=== PATIENT | female | born 1985 | race Caucasian/White ===

== ENCOUNTER 2020-08-19 02:20 | Observation (INO) | payer SELFPAY ==
[~2020-08-19] VITALS: Ht 165 cm; Wt 91.0 kg
[2020-08-19] MEDS ORDERED: PREN-556 PO (02:27)
[2020-08-19] MEDS ORDERED: FERR-212 PO (02:27)
[2020-08-19 02:53] VITALS: BP 131/68
== END 2020-08-19 04:25 | disposition home or self-care (01) ==
LOC: MLD 02:20 → EDBD 02:20
PROVIDERS: ADMIT Obstetrics & Gynecology; ATTEND Obstetrics & Gynecology
DX: O62.9 Abnormality of forces of labor, unspecified (principal); Z3A.38 38 weeks gestation of pregnancy
CPT/HCPCS: 59025; G0378

== ENCOUNTER 2020-08-19 18:45 | Inpatient (IN) | payer SELFPAY ==
[~2020-08-19] VITALS: Ht 165 cm; Wt 97.0 kg
[~2020-08-19 18:45] MED LIST: FERR-212 PO; PREN-556 PO
[2020-08-19] MEDS ORDERED: LACTATED RINGERS 1,000 ML IV SCH (19:15)
[2020-08-19] MEDS ORDERED: AMPICILLIN 2,000 MG in NACL 0.9% 100 ML IV SCH (19:25)
[2020-08-19] MEDS ORDERED: OXYTOCIN 20 UNITS in LACTATED RINGERS 1,000 ML IV SCH (19:25)
[2020-08-19 19:55] LABS: RED BLOOD CELL COUNT(AUTO) 5.55 MIL/uL (4.20-5.40)
[2020-08-19 19:56] LABS: APPEARANCE,URINE CLEAR (CLEAR); BILIRUBIN,URINE NEGATIVE (NEGATIVE); BLOOD, URINE NEGATIVE (NEGATIVE); COLOR,URINE YELLOW (YELLOW); LEUKOCYTE ESTERASE ,URINE 1+ (NEGATIVE); NITRITE, URINE NEGATIVE (NEGATIVE); UGLUCOSE NEGATIVE (NEGATIVE)
[2020-08-19 20:00] LABS: BASOPHILS % (AUTO) 0.2 % (0.0-2.0); EOSINOPHILS % (AUTO) 0.4 % (0.0-4.0); HEMATOCRIT 41.9 % (36-48); HEMOGLOBIN 13.6 g/dL (12.0-16.0); LYMPHOCYTES # (AUTO) 1.3 K/uL (2.5-16.5); LYMPHOCYTES % (AUTO) 11.4 % (20.5-51.1); MEAN CORPUSCULAR HEMOGLOBIN 25 pg (27-31); MEAN CORPUSCULAR HGB CONC 33 g/dL (33-37); MEAN CORPUSCULAR VOLUME 75.4 fL (80-94); MONOCYTES # (AUTO) 0.7 K/uL (0.8-1.0); MONOCYTES % (AUTO) 6.7 % (1.7-9.3); NEUTROPHILS % (AUTO) 81.3 % (42.2-75.2); PLATELET COUNT (AUTO) 187 K/uL (140-450); RED CELL DISTRIBUTION WIDTH 24.5 % (11.6-13.7)
[2020-08-19 20:03] LABS: RBC,URINE 0-5 /HPF (0-5)
[2020-08-19 20:10] LABS: ALBUMIN 3.1 g/dL (3.4-5.0); ANION GAP 13.4 (8-16); CARBON DIOXIDE 24.5 mmol/L (21-32); CREATININE 0.5 mg/dL (0.6-1.3); POTASSIUM 3.9 mmol/L (3.5-5.1); TOTAL BILIRUBIN 0.4 mg/dL (0.0-1.0)
[2020-08-19] MEDS ORDERED: AMPICILLIN 2,000 MG VIAL ONE (21:14)
[2020-08-19 21:36] VITALS: BP 134/92
[2020-08-19] MEDS ORDERED: ROPIVACAINE 0.2%/NS PREMIX 200 ML EPI ONE (21:41)
[2020-08-19] MEDS ORDERED: OXYTOCIN 20 UNITS/LR PREMIX 1,000 ML IV ONE (23:04)
[2020-08-19] MEDS ORDERED: METHYLERGONOVINE 0.2 MG TAB PO PRN (23:15)
[2020-08-19] MEDS ORDERED: BENZOCAINE/MENTHOL 20%-0.5% 60 GM CAN TP PRN (23:15)
[2020-08-19] MEDS ORDERED: OXYTOCIN 10 UNITS/ML VIAL IM PRN (23:15)
[2020-08-19] MEDS ORDERED: oxyCODONE/APAP 5/325 MG 1 TAB TAB PO PRN ×2 (23:15)
[2020-08-19] MEDS ORDERED: TEMAZEPAM 15 MG CAP PO PRN (23:15)
[2020-08-19] MEDS ORDERED: METHYLERGONOVINE 0.2 MG/ML AMP IM PRN (23:15)
[2020-08-19] MEDS ORDERED: IBUPROFEN 800 MG TAB PO PRN (23:15)
[2020-08-20] MEDS ORDERED: AMPICILLIN 1,000 MG in NACL 0.9% 50 ML IV SCH ×2
[2020-08-20 05:49] LABS: HEMATOCRIT 37.8 % (36-48); HEMOGLOBIN 12.1 g/dL (12.0-16.0)
[2020-08-20] MEDS ORDERED: DOCUSATE SOD/SENNA 50/8.6 MG 1 TAB PO SCH (21:00)
--- NOTE | 2020-08-21 08:43 | NUR ---
PATIENT HAS BEEN SCREENED AND CATEGORIZED LOW NUTRITION RISK. PATIENT WILL BE SEEN WITHIN 7 DAYS OF ADMISSION. 08/26/[address]
== END 2020-08-21 11:45 | disposition home or self-care (01) | DRG 807 ==
LOC: MFCC 18:45
PROVIDERS: ADMIT Obstetrics & Gynecology; ATTEND Obstetrics & Gynecology
PROC: 10E0XZZ Delivery of Products of Conception, External Approach (ICD-10-PCS; principal; 2020-08-19)
PROC: 3E0234Z Introduction of Serum, Toxoid and Vaccine into Muscle, Percutaneous Approach (ICD-10-PCS; 2020-08-20)
DX: O80 Encounter for full-term uncomplicated delivery (principal); Z37.0 Single live birth; Z3A.38 38 weeks gestation of pregnancy; Z23 Encounter for immunization; Z20.822 Contact with and (suspected) exposure to COVID-19
CPT/HCPCS: 36415; 80053; 81001; 85018; 85025; 86592; 86762; 86886; 86900; 86901; 87086; 87340; 87653-90; 90715; J0290; J2590; J2795; J7120